=== PATIENT | male | born 1990 | race Caucasian/White ===

== ENCOUNTER 2023-06-21 08:48 | Outpatient (CLI) | payer OTHER, SELFPAY | END 2023-06-21 08:49 | disposition home or self-care (01) | PROVIDERS: PCP Family Medicine; Visit Provider Family Medicine | DX: Z00.00 Encounter for general adult medical examination without abnormal findings (principal); R20.0 Anesthesia of skin; F33.9 Major depressive disorder, recurrent, unspecified; Z13.6 Encounter for screening for cardiovascular disorders | CPT/HCPCS: 80053; 80061; 82607; 84403 ==

== ENCOUNTER 2023-08-10 15:45 | Outpatient (RCR) | payer OTHER, SELFPAY ==
--- NOTE | 2023-05-25 17:07 | OT.OPOE ---
OT Outpatient Ortho Eval OT Outpatient Ortho Eval* Start: 05/20/23 11:20 Freq: Status: Active Protocol: Document 05/25/23 15:20 BITA (Rec: 05/20/23 14:36 BITA [id number]) E-signed By Samantha Monroe, OTR/L, CLT OT OP Ortho Eval Details Complexity Complexity Medium Insurance Information Other Insurance All Savers -[facility], [place], [facility] Insurance Information Comments Patient was scheduled on 05/20 for EVAL, arrived to the clinic and filled out paperwork, he didn't have the OT EVAL on that day/time as he wanted to check with his insurance on payment/coverage. He re-scheduled for today at 3:30 pm Outpatient History/Precautions Current Condition/Medical Diagnosis Referring Provider Dr. Salome Snell, Melissa .O. Treatment Diagnosis Pain in R hand, M79.641; Muscle Weakness, M62.81 Date of Onset Chronic, 2+ months Medical Conditions Depression Other Conditions CHIEF COMPLIANT: Right wrist pain, tingling, discoloration in the finger-denies injury. Pain radiates from the elbow to the wrist and into the ring finger and pinky, ongoing x 1 -2 months. MEDICAL DX: Numbness of right hand - Anesthesia of skin Major depressive disorder, recurrent episode with anxious distress (Acute) F33.9 - Major depressive disorder, recurrent, unspecified (ICD-10) Numbness of right hand (Acute) R20.0 - Anesthesia of skin ( ICD-10) Medical/Functional History Medical History Reviewed Yes Prior Level of Function/Mobility Patient is a smoker, pack-year history =1ppd x 15yrs. The patient reports EtOH use, approximately 1-2 drinks/wk. The patient denies illicit substance use apart from marijuana, smoke. The patient works as a trouble shooting mechanic. The patient lives with his spouse and kids (3 - 12y (son), 5y ( daughter), and 3y (son)). 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 Critical Job Demands Pull,Lift,Overhead Reach, Prolonged Standing Other Critical Job Demands hand manipulation, using tools (manual and power) Fitness Active but no regular exercise program/routine Ortho Subjective Subjective Subjective I know I have lost strength in his right hand My goal is to stop the tingling and numbness in the right hand My little finger and ring finger are always colder than the other fingers Pain Assessment Pain Present Pain Present Pain Reported Location Right Arm Description Burning,Tightness,Radiating, Pressure,Throbbing,Spasm, Stabbing,Shooting,Heaviness Intensity 7 Range of Motion and Strength Shoulder Range of Motion and Strength Shoulder Range of Motion and Strength FULL AROM and strength 4+/5 bilaterally Elbow/Forearm Range of Motion and Strength Elbow/Forearm Range of Motion and FULL AROM and strength 4+/5 Strength bilaterally Wrist Range of Motion and Strength Wrist Range of Motion and Strength FULL AROM and strength 4+/5 bilaterally Hand/Finger/Thumb Range of Motion and Strength Hand/Finger/Thumb Range of Motion and FULL AROM and strength 4+/5 Strength bilaterally Patient able to make a full composite fist, expressed tightness (most likely muscle/ tendon) when asked to place his R hand/wrist in full/end range extension with fingers straight. Recommending tendon glides for this Hand Pinch/Hogshead Head Matcher Strength Hand Right Hogshead Head Matcher Strength Position 1 (lbs) 42 Hogshead Head Matcher Strength Position 2 (lbs) 26 Lateral Pinch Strength (lbs) 14 Three Point Pinch (lbs) 24 Tip Pinch Strength (lbs) 18 Left Hogshead Head Matcher Strength Position 1 (lbs) 80 Hogshead Head Matcher Strength Position 2 (lbs) 70 Lateral Pinch Strength (lbs) 27 Three Point Pinch (lbs) 25 Tip Pinch Strength (lbs) 22 Upper Extremity Special Tests Elbow Cozens Test Negative Left,Negative Right Wrist Durkan's Test Negative Left,Negative Right Tenosynovitis Wrist Finklestein Test Negative Left,Negative Right Ulnar Nerve Froment's Sign Negative Left,Positive Right Upper Extremity Special Tests Comments Comments Tinel's test is negative however Phalen is positive. Negative Tinel at the left elbow. Skin color is normal, patient reports little and ring fingers of the right hand to feel cooler temperate ways than his other fingers. EMG was ordered by provider OT Problems Problems Problems Decreased Strength,Decreased Range of Motion,Decreased Dexterity,Pain,Sensory Sensitivity,Lifting,Gripping, Pinching Problems Comments Greatly impacting his work as a trouble shooting mechanic Patient Potential Good Assessment Assessment Assessment 32 year old R hand dominant male is referred to skilled OT from PCP with a dx of Numbness of right hand- Anesthesia of skin (chronic); Right wrist pain, tingling, discoloration in the finger- denies injury. Pain radiates from the elbow to the wrist and into the ring finger and pinky, ongoing x 1-2 months and progressively getting worse. Patient has an EMG scheduled for the end of the month. There is a temperature discrepancy between the right 4th and 5th fingers but normal color. R Index Finger is slightly more swollen when compared to the L hand. R UE had a positive Froment's sign (also supported by weaker primary care coordinator and pinch strengths on the R (dominant UE), Tinel's test is negative however Phalen is positive. Negative Tinel at the left elbow. Patient reports no issues/problems with his L UE. No complaints of neck/shoulder pain but upper trap and levator scapulae are tight, recommending stretching program for this. Patient rates his stress level 8/10 and taking daily Ibuprofen for pain/discomfort. Occupational Therapy Treatment Plan - OP Potential Rehabilitation Potential Good Barriers Barriers to goal attainment Smoker-pack a day Set Goals Goals Set with Patient Yes Goals Goals 1. Patient will verbalize 3 activity modifications to decrease abusive/overloading of the muscles, joints & tendons of the dominant (Right ) UE. 2. Pt will demonstrate pain- free primary care coordinator and pinch strength comparable to the uninvolved side in order to improve functional grasp, hold, reach, and lifting ability needed to complete self-care, leisure tasks, and work activities. 3. Through activity participation in skilled therapy sessions, and consistency in performing a customized HEP, patient will improve capacity of tendons, nerves and muscles to manage load in order to have less pain with ADLs, work, leisure activities and IADLs. 4. Patient will accurately perform Ulnar Nerve Glides and Nerve Flossing with use of handout daily. Target Date 8 weeks Treatment Plan Treatment Plan Evaluation,Edema Control, Iontophoresis,Joint Mobilization,Manual Therapy, Ultrasound,Therapeutic Exercise,Therapeutic Activities,Self Care/Home Management,Education Expected Frequency 1-2x Week Expected Duration 8-10 Weeks Home Program Home Program Home Program Initiated Home Program Specifics Access Code: [email or web address] URL: [email or web address] Date: 05/20/2023 Prepared by: Samantha Monroe Exercises - Ulnar Nerve Mobilization - Low Level - 1 x daily - 7 x weekly - 3 sets - 10 reps - Ulnar Nerve Flossing - 1 x daily - 7 x weekly - 3 sets - 10 reps - Ulnar Nerve Flossing - 1 x daily - 7 x weekly - 3 sets - 10 reps -Tendon Glides for the R UE Certification Certification I Certify That: Therapy Services Provided, Therapy Plan Established, Therapy Plan Reviewed Recertification Information Recertification Information Initial Certification Date 05/25/23 Recertification Due Date 08/23/23 Provider Signature Shows Agreement With POC & Medical Necessity Physician Comment/Change Comment or Changes Physician NPI Number #
== END 2023-08-10 17:08 | disposition home or self-care (01) ==
PROVIDERS: PCP Family Medicine; Visit Provider Family Medicine
DX: R20.0 Anesthesia of skin (principal); M79.641 Pain in right hand; M62.81 Muscle weakness (generalized); Z51.89 Encounter for other specified aftercare
CPT/HCPCS: 97035; 97110; 97140; 97166; X5282